=== PATIENT | female | born 1990 | race Caucasian/White ===

== ENCOUNTER 2016-11-22 16:46 | Emergency (ER) | payer OTHER ==
[~2016-11-22] VITALS: Ht 170.2 cm; Wt 61.2 kg
[2016-11-22] MEDS ORDERED: CIPRODEX OTIC7.5 ML OTIC (17:07)
[2016-11-22] MEDS ORDERED: IBUPROFEN 600600 M1 PO (17:07)
[2016-11-22] MEDS ORDERED: CIPRO500 MG PO (18:16)
[2016-11-22 18:24] VITALS: BP 122/76
== END 2016-11-22 18:24 | disposition home or self-care (01) ==
LOC: ER 16:46
DX: H60.92 Unspecified otitis externa, left ear (principal); F10.99 Alcohol use, unspecified with unspecified alcohol-induced disorder